=== PATIENT | female | born 1945 | race African-American/Black ===

== ENCOUNTER 2017-03-12 15:18 | Emergency (ER) | payer MEDICAID ==
[2017-03-12 15:50] VITALS: BP 143/83
--- NOTE | 2017-03-12 16:44 | Emergency Department Report ---
ED Extremity Problem HPI - General Chief complaint: Extremity Injury, Lower Stated complaint: PAIN/SWELLING RT FOOT Source: patient Mode of arrival: Ambulatory Limitations: No Limitations - Related Data Home Medications Medication Instructions Recorded Confirmed Last Taken Atenolol/Chlorthalidone [Tenoretic 1 tab PO DAILY 08/11/13 08/11/13 08/11/13 50-25 mg] Previous Rx's Medication Instructions Recorded Last Taken Type Ondansetron [Zofran Odt] 4 mg PO Q8H PRN #10 tab.rapdis 08/12/13 Unknown Rx Allergies Allergy/AdvReac Type Severity Reaction Status Date / Time No Known Allergies Allergy Unverified 08/11/13 21:24 ED Review of Systems ROS: Stated complaint: PAIN/SWELLING RT FOOT Other details as noted in HPI ED Past Medical Hx - Past Medical History Previous Medical History?: Yes Hx Hypertension: Yes - Surgical History Past Surgical History?: No - Social History Smoking Status: Never Smoker Substance Use Type: Prescribed - Medications Home Medications: Home Medications Medication Instructions Recorded Confirmed Last Taken Type Atenolol/Chlorthalidone [Tenoretic 1 tab PO DAILY 08/11/13 08/11/13 08/11/13 History 50-25 mg] Ondansetron [Zofran Odt] 4 mg PO Q8H PRN #10 tab.rapdis 08/12/13 Unknown Rx ED Physical Exam - General Limitations: No Limitations ED Course Vital Signs 03/12/17 15:44 Temperature 98.3 F Pulse Rate 62 Respiratory 18 Rate Blood Pressure 143/83 O2 Sat by Pulse 97 Oximetry Critical care attestation.: If time is entered above; I have spent that time in minutes in the direct care of this critically ill patient, excluding procedure time. ED Disposition Condition: Stable Referrals: PRIMARY CARE, [Primary Care Provider] - 3-5 Days
[2017-03-12] MEDS ORDERED: TORADOL IM ONE (17:12)
[2017-03-12] MEDS ORDERED: FLEXERIL PO ONE (17:12)
[2017-03-12] MEDS ORDERED: NORCO 7.5/325 PO ONE (17:12)
--- NOTE | 2017-03-12 18:48 | XRay Report ---
FINAL REPORT EXAM: XR FOOT 3 RT HISTORY: pain/swelling TECHNIQUE: Right foot three views 3 images PRIORS: None. FINDINGS: Bone mineralization appears within normal limits. No acute fracture or subluxation is identified. Traction enthesophyte is seen arising from the posterior calcaneus. No gross abnormality is seen in the soft tissues. IMPRESSION: 1. No acute osseous abnormality is identified.If there is history of trauma and symptoms persist, consider repeat study in 10-14 days to assess for a currently radiographically occult fracture.
--- NOTE | 2017-03-17 07:39 | Emergency Department Report ---
Entered by IVON PRADO, acting as scribe for SHERRON OBRIEN PA. ED Extremity Problem HPI - General Chief complaint: Extremity Injury, Lower Stated complaint: PAIN/SWELLING RT FOOT Source: patient Mode of arrival: Ambulatory Limitations: No Limitations - History of Present Illness Initial comments: 71 y/o female with a PMHx of HTN presents to the ED c/o right foot pain and swelling that began 1 week ago. Rates pain a 10/10 in severity, which she describes as aching in quality. Aggravated with weight bearing and walking, and alleviated with immobilization. Associated redness, but she denies right foot injury/trauma, paresthesias, chest pain, SOB, abdominal pain, nausea, vomiting, and fever. Family states she believes the pain was caused by an ant bite. NKDA. SHORE Complaint: extremity pain (right foot), extremity swelling (right foot pain) Onset/Timin -: week(s) Location: right, lower extremity (foot) History of Same: No -: Yes arthralgia, No fever, No associated dyspnea, No associated chest pain Radiation: none Severity scale (0 -10): 10 Quality: aching Consistency: constant Improves with: immobilization Worsens with: weight bearing, walking Associated Symptoms: denies: chest pain, shortness of breath, fever, rash - Related Data Home Medications Medication Instructions Recorded Confirmed Last Taken Atenolol/Chlorthalidone [Tenoretic 1 tab PO DAILY 08/11/13 08/11/13 08/11/13 50-25 mg] Previous Rx's Medication Instructions Recorded Last Taken Type Ondansetron [Zofran Odt] 4 mg PO Q8H PRN #10 tab.rapdis 08/12/13 Unknown Rx Cephalexin [Keflex] 500 mg PO Q12HR #14 cap 03/12/17 Unknown Rx Ketorolac [Toradol] 10 mg PO Q6H PRN #20 tablet 03/12/17 Unknown Rx Allergies Allergy/AdvReac Type Severity Reaction Status Date / Time No Known Allergies Allergy Unverified 08/11/13 21:24 ED Review of Systems Comment: All other systems reviewed and negative Constitutional: denies: chills, fever, weakness Eyes: denies: eye pain, eye discharge, vision change ENT: denies: ear pain, throat pain, dental pain Respiratory: denies: cough, orthopnea, shortness of breath, SOB with exertion, SOB at rest, stridor, wheezing Cardiovascular: denies: chest pain, palpitations, dyspnea on exertion, orthopnea , edema, syncope, paroxysmal nocturnal dyspnea Endocrine: no symptoms reported Gastrointestinal: denies: abdominal pain, nausea, vomiting, diarrhea Genitourinary: denies: urgency, dysuria Musculoskeletal: joint swelling (right foot), arthralgia (right foot). denies: back pain Skin: rash (erythema present over 1st metacarpal consistent with cellulitis). denies: lesions Neurological: denies: headache, weakness, numbness, paresthesias, confusion, vertigo Psychiatric: denies: anxiety, depression Hematological/Lymphatic: denies: easy bleeding ED Past Medical Hx - Past Medical History Previous Medical History?: Yes Hx Hypertension: Yes - Surgical History Past Surgical History?: No - Family History Family history: no significant - Social History Smoking Status: Never Smoker Substance Use Type: Prescribed - Medications Home Medications: Home Medications Medication Instructions Recorded Confirmed Last Taken Type Atenolol/Chlorthalidone [Tenoretic 1 tab PO DAILY 08/11/13 08/11/13 08/11/13 History 50-25 mg] Ondansetron [Zofran Odt] 4 mg PO Q8H PRN #10 tab.rapdis 08/12/13 Unknown Rx Cephalexin [Keflex] 500 mg PO Q12HR #14 cap 03/12/17 Unknown Rx Ketorolac [Toradol] 10 mg PO Q6H PRN #20 tablet 03/12/17 Unknown Rx ED Physical Exam - General Limitations: No Limitations General appearance: alert, in no apparent distress - Head Head exam: Present: atraumatic, normocephalic - Eye Eye exam: Present: normal appearance, PERRL, EOMI Pupils: Present: normal accommodation - ENT ENT exam: Present: normal exam, mucous membranes moist, normal external ear exam - Neck Neck exam: Present: normal inspection, full ROM. Absent: tenderness, meningismus, lymphadenopathy - Respiratory Respiratory exam: Present: normal lung sounds bilaterally. Absent: respiratory distress, wheezes, rales, rhonchi, stridor, accessory muscle use, decreased breath sounds - Cardiovascular Cardiovascular Exam: Present: regular rate, normal rhythm, normal heart sounds. Absent: systolic murmur, diastolic murmur, rubs, gallop - GI/Abdominal GI/Abdominal exam: Present: soft, normal bowel sounds. Absent: distended, tenderness - Extremities Exam Extremities exam: Present: full ROM, tenderness (mild tenderness to medial aspect of right dorsal foot), normal capillary refill, joint swelling (mild swelling to medial aspect of right dorsal foot), other (mild erythema and warmness noted to medial aspect of right dorsal foot). Absent: pedal edema, calf tenderness - Expanded Lower Extremity Exam Right Hip exam: Present: normal inspection, full ROM Upper Leg exam: Present: normal inspection, full ROM Knee exam: Present: normal inspection, full ROM Lower Leg exam: Present: normal inspection, full ROM Ankle exam: Present: normal inspection, full ROM Foot/Toe exam: Present: full ROM, tenderness (mild tenderness to medial aspect of right dorsal foot), swelling (mild swelling to medial aspect of right dorsal foot). Absent: abrasion, laceration, ecchymosis, deformity, crepidus, dislocation, erythema, amputation, puncture wound, foreign body, calcaneal tenderness, tenderness at base of 5th metatarsal, nail avulsion, subungual hematoma Neuro vascular tendon exam: Present: no vascular compromise. Absent: pulse deficit, abnormal cap refill, motor deficit, sensory deficit, tendon deficit, extremity cold to touch, pallor, abnormal 2-point discrimination Gait: Positive: observed and limited by pain (limited by right foot pain) 1 - mild erythema and warmness, mild tenderness to palpation - Back Exam Back exam: Present: normal inspection, full ROM - Neurological Exam Neurological exam: Present: alert, oriented X3, normal gait - Psychiatric Psychiatric exam: Present: normal affect, normal mood - Skin Skin exam: Present: warm, dry, intact. Absent: rash ED Course Vital Signs 03/12/17 03/12/17 03/12/17 15:44 17:22 17:23 Temperature 98.3 F Pulse Rate 62 Respiratory 18 18 18 Rate Blood Pressure 143/83 O2 Sat by Pulse 97 Oximetry ED Medical Decision Making - Radiology Data Radiology results: report reviewed XR right foot No acute osseous abnormality is identified. - Medical Decision Making 71 year old female presents to ED with mild swelling and rash to right dorsal foot consistent with mild cellulitis. patient does not recall if there was any type of injury/trauma present. patient has negative imaging study. patient will be placed on PO antibiotics and NSAIDS. patient is stable, neurologically intact , ambulatory and in no acute distress. patient is afebrile and non toxic appearing in nature. ED Disposition Clinical Impression: Cellulitis of right foot Disposition: DC-01 TO HOME OR SELFCARE Is pt being admited?: No Does the pt Need Aspirin: No Condition: Stable Prescriptions: Cephalexin [Keflex] 500 mg PO Q12HR #14 cap Ketorolac [Toradol] 10 mg PO Q6H PRN #20 tablet PRN Reason: Pain Referrals: PRIMARY CARE,MD [Primary Care Provider] - 3-5 Days This documentation as recorded by the JOHAN nesbitt JASMINE,accurately reflects the service I personally performed and the decisions made by ,SHERRON OBRIEN PA.
== END 2017-03-12 19:11 | disposition home or self-care (01) ==
LOC: ED 15:18
DX: R22.41 Localized swelling, mass and lump, right lower limb (principal); M79.671 Pain in right foot; I10 Essential (primary) hypertension; X58.XXXA Exposure to other specified factors, initial encounter; Y93.89 Activity, other specified; Y99.9 Unspecified external cause status; Y92.89 Other specified places as the place of occurrence of the external cause
CPT/HCPCS: 73630; 96372; 99283; J1885